=== PATIENT | female | born 1960 | race Caucasian/White ===

== ENCOUNTER 2016-08-27 09:22 | Emergency (ER) | payer MEDICARE ==
[2016-08-27] MEDS ORDERED: Adacel Vial IM ONE ×2 (09:45→09:56)
--- NOTE | 2016-08-27 09:54 | ERPHSYRPT ---
- History of Present Illness Time Seen by Provider: 08/27/16 09:40 Source: patient Patient Subjective Stated Complaint: pt broke ceral bowl and stepped on a peice glass in foot, happened last night. Triage Nursing Assessment: pt speech is slurred, slow to move, resp easy, skin w /d. pt has small puncture wound to bottom of foot Physician History: CC: stepped on glass Hx: 56 y/o pt of Dr Lamas with hx of HIV currently on HAART. She broke a dish yesterday and thinks she stepped on a shard. Pain in plantar right foot. No fever or chills. No swelling or bleeding. She covered with a bandaid. Last tetanus unknown. Lower Extremities Pain: foot: right Allergies/Adverse Reactions: naproxen sodium [From Aleve] Allergy (Unknown, Verified 08/27/16 09:34) Home Medications: Dolutegravir Sodium [Tivicay] 50 mg PO DAILY 01/26/14 [History] Emtricitabine/Tenofovir [Truvada Tablet] 1 each PO DAILY 01/26/14 [History] Hx Tetanus, Diphtheria Vaccination/Date Given: Yes Hx Influenza Vaccination/Date Given: No Hx Pneumococcal Vaccination/Date Given: Yes Immunizations Up to Date: Yes - Review of Systems Constitutional: No Fever, No Chills Musculoskeletal: Joint Pain (right foot) Neurological: No Focal Weakness, No Parasthesia - Past Medical History Pertinent Past Medical History: Yes Neurological History: No Pertinent History ENT History: No Pertinent History Cardiac History: No Pertinent History Respiratory History: No Pertinent History Endocrine Medical History: No Pertinent History Musculoskeletal History: No Pertinent History GI Medical History: No Pertinent History History: No Pertinent History Psycho-Social History: No Pertinent History Female Reproductive Disorders: No Pertinent History Other Medical History: HIV-currently taking antiviral medication - Past Surgical History Past Surgical History: Yes Neuro Surgical History: No Pertinent History Cardiac: No Pertinent History Respiratory: No Pertinent History Gastrointestinal: No Pertinent History Genitourinary: No Pertinent History Musculoskeletal: No Pertinent History Female Surgical History: Section, Tubal Ligation - Social History Smoking Status: Current every day smoker How long have you smoked: 21 Exposure to second hand smoke: Yes Drug Use: none Patient Lives Alone: No - Female History Hx Last Menstrual Period: post - Nursing Vital Signs Nursing Vital Signs: Initial Vital Signs Temperature 97 F Temperature Source Oral Pulse Rate 82 Respiratory Rate 16 Blood Pressure [Right Arm] 136/94 Pain Intensity 6 - Physical Exam General Appearance: alert Eyes, Ears, Nose, Throat Exam: moist mucous membranes Neck Exam: supple Cardiovascular/Respiratory Exam: regular rate/rhythm Neuro/Tendon Exam: normal sensation, normal motor functions Mental Status Exam: alert, oriented x 3, cooperative Skin Exam: warm, dry Oxygen Delivery: Room Air Comments: right foot plantar has small puncture, no redness, swelling, or drng. Mild tenderness. - Course Nursing assessment & vital signs reviewed: Yes - Radiology Exams foot right X-ray Interpretation: Discussed w/ radiologist, No Fracture (No FB visualized) Ordered Tests: Active Orders 24 hr Category Date Time Status FOOT (MINIMUM 3 VIEWS) Stat Exams 08/27/16 09:44 Completed Medication Summary Discontinued Medications Generic Name Dose Route Start Last Admin Trade Name Freq PRN Reason Stop Dose Admin Diphtheria/Tetanus/Acell Pertussis 0.5 ml 08/27/16 09:45 08/27/16 09:57 Adacel Vial IM 08/27/16 09:46 0.5 ml .ONCE ONE Administration Diphtheria/Tetanus/Acell Pertussis Confirm 08/27/16 09:56 Adacel Vial Administered 08/27/16 09:57 Dose 0.5 ml IM .STK-MED ONE - Progress Progress Note: 08/27/16 10:41 Unable to visualize FB. Advised epson salt soaks, keflex, wound care, and follow up with Dr Lamas. Counseled pt/family regarding: diagnosis, need for follow-up, rad results - Departure Time of Disposition: 10:42 Departure Disposition: Home Clinical Impression: Foreign body in right foot Qualifiers: Encounter type: initial encounter Qualified Code(s): S90.851A - Superficial foreign body, right foot, initial encounter Condition: Stable Critical Care Time: No Referrals: DOCTOR,NO FAMILY [Primary Care Provider] - VELVET LAMAS [NON-STAFF PHY W/O PRIVILEGES] - Instructions: Puncture Wound Additional Instructions: Epson salt soaks twice a day. Rx keflex. Follow up with Dr Lamas. Tylenol as directed for discomfort. Prescriptions: Cephalexin Mh 500 mg [Keflex 500 mg] 1 cap PO QID #28 capsule
--- NOTE | 2016-08-27 10:21 | XRAY ---
Indication: Great toe pain. Possible foreign body. Comparison: None 3 nonweightbearing views of the right foot demonstrates small plantar heel spur. No other bony, articular, or soft tissue abnormalities.
[2016-08-27 11:10] VITALS: BP 142/90; PULSE 78; O2SAT 97
== END 2016-08-27 11:11 | disposition home or self-care (01) ==
LOC: ED 09:22
DX: S90.851A Superficial foreign body, right foot, initial encounter (principal); W25.XXXA Contact with sharp glass, initial encounter
CPT/HCPCS: 73630; 90471; 90715; 96372; 99282; 99284

== ENCOUNTER 2016-12-01 20:26 | Emergency (ER) | payer MEDICARE ==
--- NOTE | 2016-12-01 21:18 | ERPHSYRPT ---
- History of Present Illness Time Seen by Provider: 12/01/16 21:05 Source: patient Exam Limitations: no limitations Patient Subjective Stated Complaint: pt states she was walking on the sidewalk this morning and fell and scraped her knees and hurt her wrist. Triage Nursing Assessment: pt awake and alert. speech slurred. pt transfer to stretcher from wheelchair with minimal assist. respirations nonlabored with lungs cta. rt wrist wiht swelling noted and mild swelling noted to fingers.. pt able to move fingers rom decreased. cap refill and radial pulse wnl. Physician History: This is a 56-year-old white female she arrives with complaint of pain in her we changes right wrist and right elbow symptoms since falling today. Patient states she tripped today she injured her right wrist and elbow she also states she skinned her knees. She denies any other complaints she states she has a pain in the right wrist which is not improved after taking Tylenol approximately one hour ago. Patient does have a mildly slurry speech she states this is normal for her. She denies any loss of consciousness or hitting her head. Past medical history includes HIV, chronic right hip arthropathy. , Past medical history includes tubal ligation and . Social history is positive for tobacco use. Occurred: this afternoon (10:00 this morning) Reason for Fall: tripped Injuries/Pain Location: upper extremity (right wrist and elbow), lower extremity (skinned her knees) Loss of Consciousness: no loss of consciousness Quality: aching Severity of Pain-Max: moderate Severity of Pain-Current: moderate Modifying Factors: Improves With: nothing Associated Symptoms (Fall): No abdominal pain, No back pain, No confusion, No chest pain, No dizziness, No extremity injury, No headache, No lightheadedness, No muscle spasms, No nausea, No neck pain, No ringing in ears, No seizures, No shortness of breath, No slurred speech, No trouble walking, No vomiting, No vision changes Allergies/Adverse Reactions: naproxen sodium [From Aleve] Allergy (Unknown, Verified 12/01/16 20:58) Home Medications: Dolutegravir Sodium [Tivicay] 50 mg PO DAILY 01/26/14 [History] Emtricitabine/Tenofovir [Truvada Tablet] 1 each PO DAILY 01/26/14 [History] Hx Tetanus, Diphtheria Vaccination/Date Given: Yes Hx Influenza Vaccination/Date Given: No Hx Pneumococcal Vaccination/Date Given: Yes Immunizations Up to Date: Yes - Review of Systems Constitutional: No Fever, No Chills Eyes: No Symptoms Ears, Nose, & Throat: No Symptoms Respiratory: No Cough, No Dyspnea Cardiac: No Chest Pain, No Edema, No Syncope Abdominal/Gastrointestinal: No Abdominal Pain, No Nausea, No Vomiting, No Diarrhea Genitourinary Symptoms: No Dysuria Musculoskeletal: Other (pain right wrist, pain right elbow patient states she skinned her kne) Skin: Other (abrasions to bilateral knees) Neurological: No Dizziness, No Focal Weakness, No Sensory Changes Psychological: No Symptoms Endocrine: No Symptoms All Other Systems: Reviewed and Negative - Past Medical History Pertinent Past Medical History: Yes Neurological History: No Pertinent History ENT History: No Pertinent History Cardiac History: No Pertinent History Respiratory History: No Pertinent History Endocrine Medical History: No Pertinent History Musculoskeletal History: No Pertinent History GI Medical History: No Pertinent History History: No Pertinent History Psycho-Social History: No Pertinent History Female Reproductive Disorders: No Pertinent History Other Medical History: HIV-currently taking antiviral medication - Past Surgical History Past Surgical History: Yes Neuro Surgical History: No Pertinent History Cardiac: No Pertinent History Respiratory: No Pertinent History Gastrointestinal: No Pertinent History Genitourinary: No Pertinent History Musculoskeletal: No Pertinent History Female Surgical History: Section, Tubal Ligation - Social History Smoking Status: Current every day smoker How long have you smoked: 21 Exposure to second hand smoke: Yes Drug Use: none Patient Lives Alone: No - Nursing Vital Signs Nursing Vital Signs: Initial Vital Signs Temperature 98.9 F Temperature Source Oral Pulse Rate 64 Respiratory Rate 14 Blood Pressure [Left Arm] 166/104 Pain Intensity 10 - [place] Coma Score Best Eye Response ([place]): (4) open spontaneously Best Verbal Response ([place]): (5) oriented Best Motor Response ([place]): (6) obeys commands [place] Total: 15 - Physical Exam General Appearance: no apparent distress, alert Head Injury: no evidence of injury Eye Exam: PERRL/EOMI ENT Exam: airway nml Neck Exam: normal inspection, No tenderness Respiratory/Chest Exam: normal breath sounds, No chest tenderness, No respiratory distress Cardiovascular Exam: normal heart sounds, regular rate/rhythm Gastrointestinal Exam: soft, No tenderness, No distention, No guarding, No ecchymosis Extremity Exam: other (right wrist with tenderness with palpation and movement, right elbow tender posteriorly decreased range of motion right wrist and elbow secondary to pain, full range of motion all fingers radial and ulnar pulses intact and s theymmetrical 2/4 Bilateral knee stable to examination) Neurologic Exam: alert, oriented x 3, cooperative, sensation nml, No motor deficits Skin Exam: other (Slight abrasion anterior knees bilaterally) SpO2 Interpretation: normal (99%) SpO2: 99 Oxygen Delivery: Room Air - Course Nursing assessment & vital signs reviewed: Yes - Radiology Exams Right Wrist X-ray Interpretation: Interpreted by me, Negative, No Fracture, No Subluxation Right Forearm X-ray Interpretation: Interpreted by me, Negative, No Fracture, No Subluxation Ordered Tests: Active Orders 24 hr Category Date Time Status Ice Pack, Apply PRN Care 12/01/16 20:39 Active FOREARM Stat Exams 12/01/16 21:12 Taken WRIST (MIN 3 VIEWS) Stat Exams 12/01/16 21:15 Taken Medication Summary Discontinued Medications Generic Name Dose Route Start Last Admin Trade Name Abigail PRN Reason Stop Dose Admin Hydrocodone Bitart/Acetaminophen 1 tab 12/01/16 21:48 12/01/16 21:54 [place] 5/325 Mg PO 12/01/16 21:49 1 tab STAT ONE Administration Hydrocodone Bitart/Acetaminophen Confirm 12/01/16 21:53 [place] 5/325 Mg Administered 12/01/16 21:54 Dose 1 tab .ROUTE .STK-MED ONE - Progress Progress: improved Progress Note: 12/01/16 21:18 This is a 56-year-old white female who arrives stating that she fell this morning she complains of pain in the right wrist and pain in her right elbow she has an abrasion to bilateral knees but has full range of motion to the knees and these are essentially nontender with full range of motion. She has somewhat slurred speech however she states this is normal for her. She has taken Tylenol just prior to arrival to the emergency room. Will go ahead and order an x-ray of her right wrist right elbow. . 12/01/16 22:46 Patient was given [place] 5/325 one tablet orally with improvement of her pain. Patient's x-ray of her right wrist right forearm negative for fractures or dislocation. Patient's main pain is in her right Wrist [address] Velcro wrist splint. Patient does not want a sling. Will discharge patient with prescription for [place] tablets for pain. - Departure Time of Disposition: 22:47 Departure Disposition: Home Clinical Impression: Right wrist pain, Right elbow pain, Abrasion Accidental fall Qualifiers: Encounter type: initial encounter Qualified Code(s): W19.XXXA - Unspecified fall, initial encounter Strain of right wrist Qualifiers: Encounter type: initial encounter Qualified Code(s): S66.911A - Strain of unspecified muscle, fascia and tendon at wrist and hand level, right hand, initial encounter Condition: Fair Critical Care Time: No Instructions: Prevent Falls Additional Instructions: Return home. Ice to right wrist right elbow 24-48 hours. Bacitracin to bilateral knees until abrasions he'll. [place] 5/325 #12 one orally every 4-6 hours as needed for pain. Follow-up with your family doctor (list) if symptoms are worse no better in 48 hours or persist longer than one week. Return for acute distress or for severe symptoms. Prescriptions: Hydrocodone/Acetaminophen [[place] 5-325 Tablet] 1 tab PO Q4-6HPRN PRN #12 tablet PRN Reason: Pain
[2016-12-01] MEDS ORDERED: NORCO 5/325 MG PO ONE (21:48)
[2016-12-01] MEDS ORDERED: NORCO 5/325 MG ONE (21:53)
[2016-12-01 23:11] VITALS: BP 118/60; PULSE 70; O2SAT 100
--- NOTE | 2016-12-02 09:30 | XRAY ---
Indication: Pain following fall. Comparison: January 26, 2014. 2 views of the right forearm demonstrates mild wrist soft tissue swelling. No other bony, articular, or soft tissue abnormalities.
--- NOTE | 2016-12-02 09:32 | XRAY ---
Indication: Pain following fall. Comparison: January 26, 2014. 3 views of the right wrist demonstrates mild soft tissue swelling and progressive worsening degenerative changes of the first metacarpal multangular articulation. Stable first metacarpal head subcortical cyst. No other bony, articular, or soft tissue abnormalities.
== END 2016-12-01 23:11 | disposition home or self-care (01) ==
LOC: ED 20:26
DX: S66.911A Strain of unspecified muscle, fascia and tendon at wrist and hand level, right hand, initial encounter (principal); M25.531 Pain in right wrist; M25.521 Pain in right elbow; S80.212A Abrasion, left knee, initial encounter; S80.211A Abrasion, right knee, initial encounter; W01.0XXA Fall on same level from slipping, tripping and stumbling without subsequent striking against object, initial encounter; Y93.01 Activity, walking, marching and hiking
CPT/HCPCS: 73090; 73110; 99283; 99284; L3908; A9270-GY

== ENCOUNTER 2017-04-23 11:18 | Emergency (ER) | payer MEDICARE ==
[2017-04-23 11:23] VITALS: BP 134/91
--- NOTE | 2017-04-23 11:31 | ERPHSYRPT ---
- History of Present Illness Time Seen by Provider: 04/23/17 11:26 Source: patient Exam Limitations: no limitations Patient Subjective Stated Complaint: PT REPORTS SHORT FALL THIS AM AFTER WAKING UP-REPORTS PAIN TO LEFT KNEE-DENIES NUMBNESS OR TINLGING TO EXTREMITIES Triage Nursing Assessment: PT PINK WARM ET [id number] NOTED TO LEFT KNEE -NO OBVIOUS DEFORMITY-PT HAS ROM TO EXTREMTIY Physician History: 56-year-old white female arrives with complaint of pain in the left knee since this morning at 6:30 AM. According to patient she fell this morning getting out of bed. She has pain in her left knee with movement. Past medical history includes HIV. Past surgical history includes , tubal ligation Method of Injury: fell Occurred: this morning (6:30 AM) Quality: aching Severity of Pain-Max: moderate Severity of Pain-Current: moderate Lower Extremities Pain: knee: left Modifying Factors: Improves With: movement Associated Symptoms: none Allergies/Adverse Reactions: naproxen sodium [From Aleve] Allergy (Unknown, Verified 04/23/17 11:23) Home Medications: Dolutegravir Sodium [Tivicay] 50 mg PO DAILY 01/26/14 [History] Emtricitabine/Tenofovir [Truvada Tablet] 1 each PO DAILY 01/26/14 [History] Hx Tetanus, Diphtheria Vaccination/Date Given: Yes Hx Influenza Vaccination/Date Given: No Hx Pneumococcal Vaccination/Date Given: Yes Immunizations Up to Date: Yes - Review of Systems Constitutional: No Fever, No Chills Eyes: No Symptoms Ears, Nose, & Throat: No Symptoms Respiratory: No Cough, No Dyspnea Cardiac: No Chest Pain, No Edema, No Syncope Abdominal/Gastrointestinal: No Abdominal Pain, No Nausea, No Vomiting, No Diarrhea Genitourinary Symptoms: No Dysuria Musculoskeletal: Fall, Injury, Joint Pain, Other (left knee pain), No Arthralgias, No Back Pain, No Deformity, No Joint Redness, No Joint Swelling, No Myalgias Skin: No Rash Neurological: No Dizziness, No Focal Weakness, No Sensory Changes Psychological: No Symptoms Endocrine: No Symptoms All Other Systems: Reviewed and Negative - Past Medical History Pertinent Past Medical History: Yes Neurological History: No Pertinent History ENT History: No Pertinent History Cardiac History: No Pertinent History Respiratory History: No Pertinent History Endocrine Medical History: No Pertinent History Musculoskeletal History: No Pertinent History GI Medical History: No Pertinent History History: No Pertinent History Psycho-Social History: No Pertinent History Female Reproductive Disorders: No Pertinent History Other Medical History: HIV-currently taking antiviral medication - Past Surgical History Past Surgical History: Yes Neuro Surgical History: No Pertinent History Cardiac: No Pertinent History Respiratory: No Pertinent History Gastrointestinal: No Pertinent History Genitourinary: No Pertinent History Musculoskeletal: No Pertinent History Female Surgical History: Section, Tubal Ligation - Social History Smoking Status: Current every day smoker How long have you smoked: 21 Exposure to second hand smoke: Yes Drug Use: none Patient Lives Alone: No - Nursing Vital Signs Nursing Vital Signs: Initial Vital Signs Temperature 97.5 F 04/23/17 11:22 Pulse Rate 81 04/23/17 11:22 Respiratory Rate 20 04/23/17 11:22 Blood Pressure 134/91 04/23/17 11:22 O2 Sat by Pulse Oximetry 97 04/23/17 11:22 Pain Scale Pain Intensity 8 - Physical Exam General Appearance: mild distress Eyes, Ears, Nose, Throat Exam: moist mucous membranes Neck Exam: non-tender, supple Cardiovascular/Respiratory Exam: chest non-tender, normal breath sounds, regular rate/rhythm, no respiratory distress Gastrointestinal/Abdominal Exam: non-tender, guarding Back Exam: normal inspection, No vertebral tenderness Hips Exam: bilateral: non-tender, normal inspection, normal range of motion, no evidence of injury Legs Exam: bilateral leg: non-tender, normal inspection, normal range of motion , no evidence of injury Knees Exam: right knee: non-tender, normal inspection, normal range of motion, no evidence of injury, left knee: bone tenderness, other (pain with movement and palpation left knee laterally) Ankle Exam: bilateral ankle: non-tender, normal inspection, normal range of motion, no evidence of injury Foot Exam: bilateral foot: non-tender, normal inspection, normal range of motion , no evidence of injury DTR - Lower Extremities Exam: ankle (R): 2+, ankle (L): 2+ Neuro/Tendon Exam: normal sensation, normal motor functions Mental Status Exam: alert, oriented x 3, cooperative Skin Exam: normal color, warm, dry SpO2 Interpretation: normal (97%) SpO2: 97 Oxygen Delivery: Room Air - Course Nursing assessment & vital signs reviewed: Yes - Radiology Exams Left Knee X-ray Interpretation: Discussed w/ radiologist (x-ray left knee: nondisplaced comminuted patellar fracture with soft tissue swelling and small suprapatellar effusion. Tiny posterior flabella, no other bony, articular, or soft tissue abnormalities) Ordered Tests: Active Orders 24 hr Category Date Time Status Chalino Bandage Application -[facility] STAT Care 04/23/17 11:56 Active Crutches STAT Care 04/23/17 11:56 Active Immobilizer STAT Care 04/23/17 11:56 Active KNEE (3 VIEWS) Stat Exams 04/23/17 11:27 Completed - Progress Progress: improved Progress Note: 04/23/17 11:30 56-year-old white female arrives with complaint of pain in her left lateral knee after falling this morning. Patient appears to be stable patient is offered Tylenol on arrival she states she took this just prior to arrival. Will go ahead and order an x-ray of her left knee. 04/23/17 11:57 Patient with a nondisplaced comminuted fracture of her left patella. Will place Chalino wrap knee immobilizer provide crutches. Have put out a call to Dr. Swan. 04/23/17 12:02 I've discussed case with Dr. Swan Will place Chalino wrap left knee knee immobilizer and provided crutches. Will write for [facility] for pain. Patient is a contact Dr. Swan's office early next week and arrange an appointment. - Departure Time of Disposition: 12:02 Departure Disposition: Home Clinical Impression: Left patella fracture Qualifiers: Encounter type: initial encounter Fracture type: closed Fracture morphology: comminuted Fracture alignment: nondisplaced Qualified Code(s): S82.045A - Nondisplaced comminuted fracture of left patella, initial encounter for closed fracture Accidental fall Qualifiers: Encounter type: initial encounter Qualified Code(s): W19.XXXA - Unspecified fall, initial encounter Condition: Fair Critical Care Time: No Referrals: DOCTOR,NO FAMILY [Primary Care Provider] - LAINA SWAN [ACTIVE STAFF] - Additional Instructions: Return home. Do not bend your left knee. Ice and elevate left knee 24-48 hours. Follow-up with Dr. Swan, call Wednesday and arrange an appointment . Use a walker weightbearing as tolerated left leg. [place] 5/325 #20 one orally every 4-6 hours as needed for pain. Return for acute distress or for severe symptoms. Prescriptions: Hydrocodone Bit/Acetaminophen [[place] 5/325Mg] 1 each PO Q4-6HPRN PRN #20 tablet PRN Reason: Pain
--- NOTE | 2017-04-23 11:51 | XRAY ---
Indication: Pain following fall. Comparison: None 3 views of the left knee demonstrates nondisplaced comminuted patellar fracture with soft tissue swelling and small suprapatellar effusion. Tiny posterior fabella. No other bony, articular, or soft tissue abnormalities.
[2017-04-23 12:40] VITALS: PULSE 78; O2SAT 98
== END 2017-04-23 13:06 | disposition home or self-care (01) ==
LOC: ED 11:18
DX: S82.045A Nondisplaced comminuted fracture of left patella, initial encounter for closed fracture (principal); W06.XXXA Fall from bed, initial encounter; B20 Human immunodeficiency virus [HIV] disease
CPT/HCPCS: 73562; 99283; L1830

== ENCOUNTER 2017-11-03 11:14 | Emergency (ER) | payer MEDICARE ==
[2017-11-03 11:21] VITALS: O2SAT 98
[2017-11-03 12:03] LABS: Appearance CLEAR (CLEAR); Bilirubin NEGATIVE (NEGATIVE); Glucose NEGATIVE (NEGATIVE); Ketones NEGATIVE (NEGATIVE); Leukocyte Esterase 1+ (NEGATIVE); Nitrite NEGATIVE (NEGATIVE); Protein,Urine Dip TRACE (Negative); Specific Gravity 1.005 (1.005-1.025); Urobilinogen NORMAL mg/dL (0-1)
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
[2017-11-03 12:32] LABS: Bacteria FEW /HPF (NEGATIVE); Epithelial Cells FEW /HPF (FEW); RBC 0-2 /HPF (0-2)
[2017-11-03] MEDS ORDERED: KEFLEX 500 MG PO ONE (12:54)
[2017-11-03] MEDS ORDERED: KEFLEX 500 MG ONE (12:59)
--- NOTE | 2017-11-03 14:26 | XRAY ---
Indication: Right hip pain following fall. Comparison: January 26, 2014. AP pelvis and 2 views of the right hip again demonstrates mild lower lumbar degenerative changes, partially sacralized L5, and a few pelvic phleboliths. No new/acute bony, articular, or soft tissue abnormalities.
[2017-11-03 15:28] VITALS: BP 131/87; PULSE 74
== END 2017-11-03 15:51 | disposition home or self-care (01) ==
LOC: ED 11:14
DX: N39.0 Urinary tract infection, site not specified (principal); M54.5 Low back pain; M25.551 Pain in right hip
CPT/HCPCS: 73502; 81000; 87086; 96365; 99283; 99284; A9270-GY

== ENCOUNTER 2017-11-03 19:20 | Observation (INO) | payer MEDICARE ==
[2017-11-03] MEDS ORDERED: Sodium Chloride 0.9% 1000 ML 1,000 ML IV STA (19:32)
[2017-11-03] MEDS ORDERED: Sodium Chloride 0.9% 1000 ML 1,000 ML ONE (19:39)
--- NOTE | 2017-11-03 19:42 | ERPHSYRPT ---
- History of Present Illness Time Seen by Provider: 11/03/17 19:35 Source: patient Exam Limitations: no limitations Patient Subjective Stated Complaint: uti Triage Nursing Assessment: pt is alert and oriented. pt has history of brain injurty so speech is slurred and delayed when answering questions. pt states that she is having pain in her hips. was seen this afternoon in [facility] ER and diagnosed with UTI. Physician History: patient was seen earlier in ED and was diagnosed with urinary tract infection. Patient also was complaining of back and right hip pain as well. Right hip x- ray was negative, but patient continued to complain about right back pain. Patient went home but states pain was getting worse, sharp, constant and localized to the back area. Patient states that she's had increased pain with movement and it was very difficult for her to get around at home. Patient denies any nausea/vomiting, abdominal pain, chest pain, shortness of breath or weakness. Patient states that she does not have any pain medicines at home to take Timing/Duration: today Severity: moderate Modifying Factors: Improves With: immobilization (improves), movement (worsens) Associated Symptoms: weakness, No nausea, No vomiting, No abdominal pain, No heartburn, No chest pain, No fever Allergies/Adverse Reactions: naproxen sodium [From Aleve] Allergy (Unknown, Verified 04/23/17 11:23) Home Medications: Dolutegravir Sodium [Tivicay] 50 mg PO DAILY 01/26/14 [History] Emtricitabine/Tenofovir [Truvada Tablet] 1 each PO DAILY 01/26/14 [History] Hx Tetanus, Diphtheria Vaccination/Date Given: Yes Hx Influenza Vaccination/Date Given: No Hx Pneumococcal Vaccination/Date Given: No - Review of Systems Constitutional: No Fever, No Chills Eyes: No Symptoms Ears, Nose, & Throat: No Symptoms Respiratory: No Symptoms, No Cough, No Dyspnea Cardiac: No Symptoms, No Chest Pain, No Edema, No Syncope Abdominal/Gastrointestinal: No Symptoms, No Abdominal Pain, No Nausea, No Vomiting, No Diarrhea Genitourinary Symptoms: Frequency, Hesitancy, Urgency, No Dysuria Musculoskeletal: Back Pain, No Neck Pain Skin: No Symptoms, No Rash Neurological: No Symptoms, No Dizziness, No Focal Weakness, No Sensory Changes Psychological: No Symptoms Endocrine: No Symptoms All Other Systems: Reviewed and Negative - Past Medical History Pertinent Past Medical History: Yes Neurological History: No Pertinent History ENT History: No Pertinent History Cardiac History: No Pertinent History Respiratory History: No Pertinent History Endocrine Medical History: No Pertinent History Musculoskeletal History: No Pertinent History GI Medical History: No Pertinent History History: No Pertinent History Psycho-Social History: No Pertinent History Female Reproductive Disorders: No Pertinent History Other Medical History: HIV-currently taking antiviral medication - Past Surgical History Past Surgical History: Yes Neuro Surgical History: No Pertinent History Cardiac: No Pertinent History Respiratory: No Pertinent History Gastrointestinal: No Pertinent History Genitourinary: No Pertinent History Musculoskeletal: No Pertinent History Female Surgical History: Section, Tubal Ligation - Social History Smoking Status: Current every day smoker How long have you smoked: years Exposure to second hand smoke: Yes Drug Use: none Patient Lives Alone: Yes - Female History Hx Now: No - Nursing Vital Signs Nursing Vital Signs: Initial Vital Signs Temperature 99.2 F 11/03/17 19:21 Pulse Rate 76 11/03/17 19:21 Respiratory Rate 18 11/03/17 19:21 Blood Pressure 136/93 11/03/17 19:21 O2 Sat by Pulse Oximetry 100 11/03/17 19:21 Pain Scale Pain Intensity 8 - Physical Exam General Appearance: no apparent distress, alert Eye Exam: PERRL/EOMI, eyes nml inspection Ears, Nose, Throat Exam: normal ENT inspection, TMs normal, pharynx normal, moist mucous membranes Neck Exam: normal inspection, non-tender, supple, full range of motion Respiratory Exam: normal breath sounds, lungs clear, No respiratory distress Cardiovascular Exam: regular rate/rhythm, normal heart sounds, normal peripheral pulses Gastrointestinal/Abdomen Exam: soft, normal bowel sounds, No tenderness, No mass Back Exam: normal inspection, CVA tenderness, vertebral tenderness, other ( there is right paralumbar tenderness to palpation.) Extremity Exam: normal inspection, pelvis stable, limited range of motion Neurologic Exam: alert, oriented x 3, cooperative, crnp II-XII nml as tested, normal mood/affect, nml cerebellar function, sensation nml, other (patient with unsteady gait while bending over with back), No motor deficits Skin Exam: normal color, warm, dry, No rash Lymphatic Exam: No adenopathy SpO2 Interpretation: normal SpO2: 100 Oxygen Delivery: Room Air - Course Nursing assessment & vital signs reviewed: Yes EKG Interpreted by Me: RATE (85), Sinus Rhythm, NORMAL AXIS, NORMAL INTERVALS, NORMAL QRS, Non-specific ST Changes Ordered Tests: Active Orders 24 hr Category Date Time Status Atg Architect STAT Care 11/03/17 20:24 Active EKG-ER Only STAT Care 11/03/17 20:23 Active CBC W DIFF Stat Lab 11/03/17 19:51 Completed CMP Stat Lab 11/03/17 19:51 Completed Medication Summary Generic Name Dose Route Start Last Admin Trade Name Freq PRN Reason Stop Dose Admin Sodium Chloride 1,000 mls @ 250 mls/hr 11/03/17 19:32 11/03/17 19:40 Sodium Chloride 0.9% 1000 Ml IV 11/03/17 23:31 250 mls/hr .Q4H STA Administration Discontinued Medications Generic Name Dose Route Start Last Admin Trade Name Freq PRN Reason Stop Dose Admin Acetaminophen 650 mg 11/03/17 20:43 11/03/17 20:45 Tylenol 325 Mg PO 11/03/17 20:44 650 mg STAT STA Administration Acetaminophen Confirm 11/03/17 20:45 Tylenol 325 Mg Administered 11/03/17 20:46 Dose 650 mg .ROUTE .STK-MED ONE Sodium Chloride Confirm 11/03/17 19:39 Sodium Chloride 0.9% 1000 Ml Administered 11/03/17 19:40 Dose 1,000 mls @ ud .ROUTE .STK-MED ONE Potassium Chloride 40 meq 11/03/17 20:25 11/03/17 20:34 Klor Con 10 Meq PO 11/03/17 20:26 40 meq STAT ONE Administration Potassium Chloride Confirm 11/03/17 20:34 Klor Con 10 Meq Administered 11/03/17 20:35 Dose 40 meq PO .STK-MED ONE Lab/Rad Data: Laboratory Result Diagrams 11/03/17 19:51 11/03/17 19:51 Laboratory Results 11/03/17 11/03/17 Range/Units 19:51 19:51 WBC 5.0 (4.0-10.5) K/mm3 RBC 4.71 (4.1-5.4) M/mm3 Hgb 15.3 (12.0-16.0) gm/dl Hct 43.4 (35-47) % MCV 92.1 (78-100) fl MCH 32.5 H (26-32) pg MCHC 35.3 (32-36) g/dl RDW 13.8 (11.5-14.0) % Plt Count 132 L (150-450) K/mm3 MPV 9.9 H (6-9.5) fl Gran % 76.2 H (36.0-66.0) % Eos # (Auto) 0.05 (0-0.5) Absolute Lymphs (auto) 0.63 L (1.0-4.6) Absolute Monos (auto) 0.48 (0.0-1.3) Lymphocytes % 12.7 L (24.0-44.0) % Monocytes % 9.7 (0.0-12.0) % Eosinophils % 1.0 (0.00-5.0) % Basophils % 0.4 (0.0-0.4) % Absolute Granulocytes 3.77 (1.4-6.9) Basophils # 0.02 (0-0.4) Sodium 142 (137-145) mmol/L Potassium 2.2 L* (3.5-5.1) mmol/L Chloride 100 (98-107) mmol/L Carbon Dioxide 32 H (22-30) mmol/L Anion Gap 12.6 (5-15) MEQ/L BUN 12 (7-17) mg/dL Creatinine 0.95 (0.52-1.04) mg/dL Estimated GFR > 60.0 ML/MIN Glucose 113 H (74-106) mg/dL Calcium 9.6 (8.4-10.2) mg/dL Total Bilirubin 1.70 H (0.2-1.3) mg/dL AST 28 (14-36) U/L ALT 15 (0-35) U/L Alkaline Phosphatase 104 (38-126) U/L Serum Total Protein 8.2 (6.3-8.2) g/dL Albumin 4.2 (3.5-5.0) g/dL - Progress Progress: improved Progress Note: 11/03/17 21:30 Pt. given KCl 40 MEQ PO. Started IVF's and also given Tylenol for pain Discussed with Dr.: Micha (Notified about pt. and agrees to admit) Will see patient in: hospital (observation) Counseled pt/family regarding: lab results, diagnosis - Departure Time of Disposition: 21:30 Departure Disposition: Observation Clinical Impression: UTI (urinary tract infection), Hypokalemia Condition: Stable Critical Care Time: No Referrals: DOCTOR,NO FAMILY [Primary Care Provider] -
[2017-11-03 19:57] LABS: BASOPHIL % 0.4 % (0.0-0.4); Basophil (Absolute #) 0.02 (0-0.4); Eosinophil (Absolute #) 0.05 (0-0.5); Granulocyte Absolute (ANC) 3.77 (1.4-6.9); Granulocytes % 76.2 % (36.0-66.0); Hematocrit 43.4 % (35-47); Hemoglobin 15.3 gm/dl (12.0-16.0); Lymphocyte (Absolute #) 0.63 (1.0-4.6); Lymphocytes % 12.7 % (24.0-44.0); Mean Cell Volume 92.1 fl (78-100); Mean Corpuscular Hemoglobin 32.5 pg (26-32); Mean Corpuscular Hgb Concent. 35.3 g/dl (32-36); Mean Platelet Volume 9.9 fl (6-9.5); Monocyte (Absolute #) 0.48 (0.0-1.3); Monocytes % 9.7 % (0.0-12.0); Platelet Count 132 K/mm3 (150-450); Red Blood Count 4.71 M/mm3 (4.1-5.4); Red Cell Distribution Width 13.8 % (11.5-14.0)
[2017-11-03 20:11] LABS: ALBUMIN 4.2 g/dL (3.5-5.0); ALKALINE PHOSPHATASE 104 U/L (38-126); ANION GAP 12.6 MEQ/L (5-15); BLOOD UREA NITROGEN 12 mg/dL (7-17); CHLORIDE 100 mmol/L (98-107); Calcium 9.6 mg/dL (8.4-10.2); Carbon Dioxide 32 mmol/L (22-30); Creatinine 1 0.95 mg/dL (0.52-1.04); Glucose 113 mg/dL (74-106); SGOT/AST 28 U/L (14-36); SGPT/ALT 15 U/L (0-35); SODIUM 142 mmol/L (137-145); Total Protein 8.2 g/dL (6.3-8.2)
[2017-11-03 20:15] LABS: Potassium 2.2 mmol/L (3.5-5.1)
[2017-11-03] MEDS ORDERED: Klor Con 10 MEQ PO ONE ×2 (20:25→20:34)
[2017-11-03] MEDS ORDERED: TYLENOL 325 MG PO STA (20:43)
[2017-11-03] MEDS ORDERED: TYLENOL 325 MG ONE (20:45)
[2017-11-03] MEDS ORDERED: Rocephin 1000 MG INJ IV ONE (21:37)
[2017-11-03] MEDS ORDERED: ROCEPHIN 1 Gm-D5w 50 ml Bag** 1 G/50 ML IVPB IV ONE (21:43)
[2017-11-04] MEDS: SODIUM CHLORIDE 0.45% W/ 20 mEq KCL 1,000 ML IV SCH ×3 (00:28→22:37)
[2017-11-04 05:40] LABS: BASOPHIL % 0.5 % (0.0-0.4); Basophil (Absolute #) 0.02 (0-0.4); Eosinophil % 2.3 % (0.00-5.0); Eosinophil (Absolute #) 0.09 (0-0.5); Granulocyte Absolute (ANC) 2.48 (1.4-6.9); Granulocytes % 64.3 % (36.0-66.0); Hematocrit 37.5 % (35-47); Hemoglobin 13.3 gm/dl (12.0-16.0); Lymphocyte (Absolute #) 0.76 (1.0-4.6); Lymphocytes % 19.7 % (24.0-44.0); Mean Cell Volume 93.1 fl (78-100); Mean Corpuscular Hgb Concent. 35.5 g/dl (32-36); Mean Platelet Volume 10.2 fl (6-9.5); Monocyte (Absolute #) 0.51 (0.0-1.3); Monocytes % 13.2 % (0.0-12.0); Platelet Count 115 K/mm3 (150-450); Red Blood Count 4.03 M/mm3 (4.1-5.4); White Blood Count 3.9 K/mm3 (4.0-10.5)
[2017-11-04 06:02] LABS: ANION GAP 7.9 MEQ/L (5-15); BLOOD UREA NITROGEN 11 mg/dL (7-17); CHLORIDE 110 mmol/L (98-107); Calcium 8.6 mg/dL (8.4-10.2); Carbon Dioxide 27 mmol/L (22-30); Creatinine 1 0.74 mg/dL (0.52-1.04); Glucose 95 mg/dL (74-106); SODIUM 143 mmol/L (137-145)
[2017-11-04 06:14] LABS: Potassium 2.5 mmol/L (3.5-5.1)
[2017-11-04] MEDS: POTASSIUM CHLORIDE 20 mEq IN WATER 100ML 20 MEQ/100 ML BAG IV SCH ×2 (06:31→08:43)
[2017-11-04] MEDS ORDERED: Sodium Chloride 0.9% 500 ML 500 ML IV ONE (06:53)
[2017-11-04] MEDS ORDERED: MEDICATION INTERVENTION MC SCH (08:45)
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
[2017-11-04] MEDS ORDERED: [UNRECOGNIZED DRUG - OTHER] PO SCH (10:00)
[2017-11-04] MEDS: Nicoderm CQ 21 MG TOP SCH (10:21)
[2017-11-04] MEDS: ECOTRIN 81 MG PO SCH (10:21)
[2017-11-04] MEDS ORDERED: K-LYTE 25 MEQ PO ONE (15:40)
[2017-11-04] MEDS ORDERED: ROCEPHIN 1 Gm-D5w 50 ml Bag** 1 G/50 ML IVPB IV SCH (22:00)
[2017-11-05 05:57] LABS: BASOPHIL % 0.5 % (0.0-0.4); Basophil (Absolute #) 0.02 (0-0.4); Eosinophil % 2.2 % (0.00-5.0); Eosinophil (Absolute #) 0.08 (0-0.5); Granulocyte Absolute (ANC) 2.54 (1.4-6.9); Granulocytes % 68.7 % (36.0-66.0); Hematocrit 39.7 % (35-47); Hemoglobin 13.7 gm/dl (12.0-16.0); Lymphocytes % 18.9 % (24.0-44.0); Mean Cell Volume 95.4 fl (78-100); Mean Corpuscular Hemoglobin 32.9 pg (26-32); Mean Corpuscular Hgb Concent. 34.5 g/dl (32-36); Mean Platelet Volume 10.2 fl (6-9.5); Monocyte (Absolute #) 0.36 (0.0-1.3); Monocytes % 9.7 % (0.0-12.0); Platelet Count 105 K/mm3 (150-450); Red Blood Count 4.16 M/mm3 (4.1-5.4); Red Cell Distribution Width 13.8 % (11.5-14.0); White Blood Count 3.7 K/mm3 (4.0-10.5)
[2017-11-05 06:08] LABS: ANION GAP 10.2 MEQ/L (5-15); BLOOD UREA NITROGEN 5 mg/dL (7-17); CHLORIDE 108 mmol/L (98-107); Calcium 8.9 mg/dL (8.4-10.2); Carbon Dioxide 30 mmol/L (22-30); Creatinine 1 0.67 mg/dL (0.52-1.04); Glucose 95 mg/dL (74-106); Potassium 3.2 mmol/L (3.5-5.1); SODIUM 145 mmol/L (137-145)
[2017-11-05] MEDS: SODIUM CHLORIDE 0.45% W/ 20 mEq KCL 1,000 ML IV SCH (06:45)
--- NOTE | 2017-11-05 08:43 | PCM.DS ---
Discharge Summary Date of Admission: 11/03/17 22:31 Admitting Physician: JESU MERRITT Primary Care Provider: JESU MERRITT Allergies Allergies naproxen sodium [From Aleve] Allergy (Unknown, Verified 04/23/17 11:23) Hospital Summary - Hospital Course Hospital Course: patient admitted with low potassium, diarrhea and fever/uti. feeling much better at time of discharge, diarrhea resolved and tolerating po intake. - Vitals & Intake/Output Vital Signs: Vital Signs Temperature 98 F 11/05/17 07:26 Pulse Rate 68 11/05/17 07:26 Respiratory Rate 16 11/05/17 07:26 Blood Pressure 135/72 11/05/17 07:26 O2 Sat by Pulse Oximetry 96 11/05/17 07:26 Intake & Output: Intake & Output 11/02/17 11/03/17 11/04/17 11/05/17 11:59 11:59 11:59 11:59 Intake Total 1053 3977 Output Total 1300 3525 Balance -247 452 Weight 44.9 kg - Lab Result Diagrams: 11/05/17 05:45 11/05/17 05:45 Lab Results-Last 24 Hrs: Lab Results-Last 24 Hours 11/04/17 11/05/17 11/05/17 Range/Units 13:56 05:45 05:45 WBC 3.7 L (4.0-10.5) K/mm3 RBC 4.16 (4.1-5.4) M/mm3 Hgb 13.7 (12.0-16.0) gm/dl Hct 39.7 (35-47) % MCV 95.4 (78-100) fl MCH 32.9 H (26-32) pg MCHC 34.5 (32-36) g/dl RDW 13.8 (11.5-14.0) % Plt Count 105 L (150-450) K/mm3 MPV 10.2 H (6-9.5) fl Gran % 68.7 H (36.0-66.0) % Eos # (Auto) 0.08 (0-0.5) Absolute Lymphs (auto) 0.70 L (1.0-4.6) Absolute Monos (auto) 0.36 (0.0-1.3) Lymphocytes % 18.9 L (24.0-44.0) % Monocytes % 9.7 (0.0-12.0) % Eosinophils % 2.2 (0.00-5.0) % Basophils % 0.5 (0.0-0.4) % Absolute Granulocytes 2.54 (1.4-6.9) Basophils # 0.02 (0-0.4) Sodium 145 (137-145) mmol/L Potassium 3.0 L 3.2 L (3.5-5.1) mmol/L Chloride 108 H (98-107) mmol/L Carbon Dioxide 30 (22-30) mmol/L Anion Gap 10.2 (5-15) MEQ/L BUN 5 L (7-17) mg/dL Creatinine 0.67 (0.52-1.04) mg/dL Estimated GFR > 60.0 ML/MIN Glucose 95 (74-106) mg/dL Calcium 8.9 (8.4-10.2) mg/dL Magnesium 2.0 (1.6-2.3) mg/dL - Procedures and Test Procedures and Tests throughout Hospitalization: Therapy Orders & Screens 11/03/17 23:22 Smoking Cessation Education ONCE Comment: Diagnosis: hypokalemia, UTI Smoking Status: Current every day smoker How long have you smoked: years Have you smoked in the past 12 months: Yes Approximately how many cigarettes per day: 8 Do you dip or chew tobacco: No Discharge Exam General Appearance: no apparent distress, alert Skin Exam: normal color, warm, dry Respiratory Exam: normal breath sounds, lungs clear, No respiratory distress Cardiovascular Exam: regular rate/rhythm, normal heart sounds Gastrointestinal/Abdomen Exam: soft, No tenderness, No mass Final Diagnosis/Problem List - Final Discharge Diagnosis/Problem (1) Hypokalemia Current Visit: Yes Status: Acute Onset Date: ~11/04/17 Assessment & Plan: replaced, home on po potassium (2) UTI (urinary tract infection) Current Visit: Yes Status: Acute Onset Date: ~11/04/17 Assessment & Plan: urine culture negative, d/c abx - Discharge Disposition: Home, Self-Care Condition: Stable Prescriptions: New Potassium Chloride 10 Meq Tab* [Klor Con 10 MEQ] 10 meq PO DAILY #30 tab Continue Aspirin 81 mg PO DAILY Nicotine 21 mg [Nicoderm CQ 21 MG] 21 mg TOP DAILY Elviteg/Cob/Emtri/Tenof Alafen [Genvoya Tablet] 1 tab PO DAILY Discontinued Cephalexin Mh 500 mg [Keflex 500 mg] 500 mg PO Q6H 7 Days #28 capsule
[2017-11-05] MEDS ORDERED: K-LYTE 25 MEQ PO ONE (08:45)
[2017-11-05] MEDS: Nicoderm CQ 21 MG TOP SCH (09:31)
[2017-11-05] MEDS: ECOTRIN 81 MG PO SCH (09:31)
[2017-11-05 12:27] VITALS: BP 128/79; PULSE 73; O2SAT 95
[2017-11-05 13:31] LABS: BLOOD UREA NITROGEN 7 mg/dL (7-17); CHLORIDE 108 mmol/L (98-107); Calcium 8.9 mg/dL (8.4-10.2); Carbon Dioxide 27 mmol/L (22-30); Glucose 162 mg/dL (74-106); Potassium 3.6 mmol/L (3.5-5.1); SODIUM 143 mmol/L (137-145)
== END 2017-11-05 15:05 | disposition home or self-care (01) ==
LOC: ED 19:20 → MED SURG 22:31
PROVIDERS: ADMIT Family Medicine; ATTEND Family Medicine
DX: E87.6 Hypokalemia (principal); N39.0 Urinary tract infection, site not specified; B20 Human immunodeficiency virus [HIV] disease; Z72.0 Tobacco use; Z79.899 Other long term (current) drug therapy
CPT/HCPCS: 36415; 80048; 80053; 83735; 84132; 85025; 93005; 93041; 93268; 96360; 96361; 99285; G0378; 99284; J0696; J3480; A9270-GY